=== PATIENT | female | born 1985 | race Caucasian/White ===

== ENCOUNTER 2019-12-07 21:42 | Observation (INO) ==
[2019-12-07 14:30] LABS: Basophils % 0.3 %; Red Cell Distribution Width 13.2 % (11.5-14.5)
[2019-12-07 14:32] LABS: Eosinophils % 0.3 %; Hematocrit 30.5 % (35.3-44.9); Hemoglobin 9.9 g/dL (11.5-15.4); Immature Granulocytes % 0.4 % (0-4); Immature Platelets 18.1 % (1.1-6.1); Lymphocytes # 1.2 K/mcL (0.6-4.6); Lymphocytes % 17.6 %; Mean Corpuscular HGB Conc 32.5 g/dL (31.6-35.5); Mean Corpuscular Hemoglobin 26.6 pg (28.0-33.3); Mean Platelet Volume 13.2 fL (9.4-12.4); Monocytes # 0.6 K/mcL (0.0-1.3); Monocytes % 8.4 %; Platelet Count 117 K/mcL (140-400); Red Blood Count 3.72 M/mcL (3.82-4.97); White Blood Count 6.9 K/mcL (4.3-11.1)
[2019-12-07 14:33] LABS: Protein/Creatinine Ratio,Urine 0.2 mg/mg (0.00-0.20)
[2019-12-07 14:44] LABS: Alanine Aminotransferase 9 Units/L (7-52); Aspartate Amino Transferase 19 Units/L (13-39); BUN/Creatinine Ratio 10 (6-26); Blood Urea Nitrogen 6 mg/dL (6-20); Lactate Dehydrogenase 110 Units/L (140-271); Uric Acid 6.4 mg/dL (2.3-7.6); eGFR For African Americans > 60 (> 60); eGFR For Non-African Americans > 60 (> 60)
[2019-12-07] MEDS: Betamethasone Acet/SodPhos 30 MG/5 ML VIAL IM SCH (16:23)
[2019-12-08 06:32] LABS: Hematocrit 30.9 % (35.3-44.9); Hemoglobin 9.7 g/dL (11.5-15.4); Mean Corpuscular HGB Conc 31.4 g/dL (31.6-35.5); Mean Corpuscular Volume 86.1 fL (83.0-100.0); Mean Platelet Volume 12.7 fL (9.4-12.4); Platelet Count 126 K/mcL (140-400); Red Blood Count 3.59 M/mcL (3.82-4.97); Red Cell Distribution Width 13.3 % (11.5-14.5); White Blood Count 9.4 K/mcL (4.3-11.1)
[2019-12-08 06:53] LABS: Aspartate Amino Transferase 17 Units/L (13-39); BUN/Creatinine Ratio 11 (6-26); Blood Urea Nitrogen 7 mg/dL (6-20); eGFR For African Americans > 60 (> 60); eGFR For Non-African Americans > 60 (> 60)
[2019-12-08 14:49] LABS: Total Volume 24 Hour,Urine 1.32 Liters (0.60-1.60)
[2019-12-08] MEDS: Betamethasone Acet/SodPhos 30 MG/5 ML VIAL IM SCH (16:23)
[2019-12-08 16:43] VITALS: BP 137/90
== END 2019-12-08 17:15 | disposition home or self-care (01) ==
LOC: 1NENULAB → 1NENUOBS 21:42
PROVIDERS: ADMIT Obstetrics & Gynecology; ATTEND Obstetrics & Gynecology

== ENCOUNTER 2019-12-10 04:32 | Inpatient (IN) ==
[~2019-12-10 04:32] MED LIST: *HR* FentaNYL (PF) 100 MCG/2 ML VIAL IVP PRN; Famotidine 20 MG/2 ML VIAL IVP PRN; Lidocaine 1% 20 ML MDV INFILT PRN; Metoclopramide 10 MG/2 ML VIAL IVP PRN; Naloxone 0.4 MG/ML INJ IVP PRN; Ondansetron 4 MG/2 ML VIAL IVP PRN
[2019-12-10] MEDS ORDERED: Penicillin G Potassium 5,000,000 UNIT in 0.9 % Sodium Chloride Mini Bag 100 ML IVPB ONE (04:34)
[2019-12-10] MEDS ORDERED: Ringers Solution, Lactated 1,000 ML IVC SCH (04:45)
[2019-12-10 05:01] LABS: Hematocrit 29.9 % (35.3-44.9); Hemoglobin 9.4 g/dL (11.5-15.4); Mean Corpuscular HGB Conc 31.4 g/dL (31.6-35.5); Mean Corpuscular Volume 82.6 fL (83.0-100.0); Red Blood Count 3.62 M/mcL (3.82-4.97)
[2019-12-10 05:02] LABS: Basophils % 0.4 %; Eosinophils % 0.1 %; Immature Granulocytes % 4.5 % (0-4); Immature Platelets 17.9 % (1.1-6.1); Lymphocytes # 1.9 K/mcL (0.6-4.6); Lymphocytes % 17.1 %; Mean Platelet Volume 12.9 fL (9.4-12.4); Monocytes # 0.9 K/mcL (0.0-1.3); Monocytes % 8.4 %; Neutrophils # 7.8 K/mcL (1.6-8.9); Nucleated Red Blood Cells 1.2 /100 WBC (0); Platelet Count 154 K/mcL (140-400); Red Cell Distribution Width 13.5 % (11.5-14.5); Segmented Neutrophils % 69.5 %; White Blood Count 11.2 K/mcL (4.3-11.1)
[2019-12-10 05:12] LABS: Amphetamine Screen,Urine Negative ng/mL (Cutoff=1000); Barbiturate Screen,Urine Negative ng/mL (Cutoff=200); Benzodiazepines Screen,Urine Negative ng/mL (Cutoff=200); Cannabinoid Screen,Urine Negative ng/mL (Cutoff = 50); Cocaine Screen,Urine Negative ng/mL (Cutoff= 300); Opiate Screen,Urine Negative ng/mL (Cutoff=300); Phencyclidine Screen,Urine Negative ng/mL (Cutoff=25)
[2019-12-10 05:22] LABS: Alanine Aminotransferase 10 Units/L (7-52); Aspartate Amino Transferase 22 Units/L (13-39); BUN/Creatinine Ratio 20 (6-26); Blood Urea Nitrogen 14 mg/dL (6-20); Lactate Dehydrogenase 142 Units/L (140-271); Uric Acid 7.3 mg/dL (2.3-7.6); eGFR For African Americans > 60 (> 60); eGFR For Non-African Americans > 60 (> 60)
[2019-12-10] MEDS ORDERED: *HR* Labetalol 20 MG/4 ML SYRINGE IVP PRN (05:24)
[2019-12-10] MEDS ORDERED: Magnesium Sulf 20 gm/SW 500mL 20 GM/500 ML IV.SOLN IVC SCH (05:30)
[2019-12-10] MEDS ORDERED: Epidural Premix (fent/bupiv) 110 ML EP ONE (06:03)
[2019-12-10] MEDS ORDERED: Ropivacaine/PF 0.2% 20 ML VIAL ONE (06:06)
[2019-12-10] MEDS ORDERED: Naloxone 0.4 MG/ML INJ IVP PRN (06:51)
[2019-12-10] MEDS ORDERED: EPHEDrine 50 MG/ML VIAL IVP PRN (06:51)
[2019-12-10] MEDS ORDERED: Ropivacaine/PF 0.2% 20 ML VIAL EP ONE (06:51)
[2019-12-10] MEDS ORDERED: Ondansetron 4 MG/2 ML VIAL IVP PRN (06:51)
[2019-12-10] MEDS ORDERED: Epidural Premix (fent/bupiv) 110 ML EP SCH (07:00)
[2019-12-10] MEDS ORDERED: *HR* Labetalol 20 MG/4 ML SYRINGE IVP ONE ×2 (07:22→07:25)
[2019-12-10 07:53] LABS: Creatinine,Urine 63 mg/dL; Protein/Creatinine Ratio,Urine 0.51 mg/mg (0.00-0.20)
[2019-12-10] MEDS ORDERED: Penicillin G Potassium 2,500,000 UNIT/105 ML MLS IVPB SCH (08:00)
[2019-12-10] MEDS ORDERED: Oxytocin 20 units/ LR 1000 mL 40 UNIT/2,000 ML BAG IVC ONE (08:36)
[2019-12-10] MEDS ORDERED: Oxytocin 20 units/ LR 1000 mL 20 UNIT/1,000 ML BAG IVC ONE (11:19)
[2019-12-10] MEDS ORDERED: Lanolin 7 G OINT...G. TP PRN (11:19)
[2019-12-10] MEDS ORDERED: Oxytocin 20 units/ LR 1000 mL 20 UNIT/1,000 ML BAG IVC SCH (11:19)
[2019-12-10] MEDS ORDERED: Rho Immune Globulin 1,500 UNIT SYRINGE IM PRN (11:19)
[2019-12-10] MEDS ORDERED: Measles/Mumps/Rubella Vacc 0.5 ML VIAL SQ PRN (11:19)
[2019-12-10] MEDS ORDERED: NIFEdipine XL (24 HR) 30 MG TAB.ER.24 PO ONE (12:50)
[2019-12-10] MEDS ORDERED: miSOPROStoL 100 MCG TABLET PO ONE (14:02)
[2019-12-11] MEDS: Acetaminophen 325 MG TABLET PO PRN ×2 (01:06→10:54)
[2019-12-11 04:53] LABS: Mean Corpuscular HGB Conc 31.4 g/dL (31.6-35.5); Mean Corpuscular Hemoglobin 26.6 pg (28.0-33.3); Mean Corpuscular Volume 84.9 fL (83.0-100.0); Mean Platelet Volume 12.8 fL (9.4-12.4); Platelet Count 124 K/mcL (140-400); Red Blood Count 2.59 M/mcL (3.82-4.97); Red Cell Distribution Width 13.4 % (11.5-14.5); Segmented Neutrophils % 72.1 %; White Blood Count 9.9 K/mcL (4.3-11.1)
[2019-12-11 04:54] LABS: Basophils % 0.2 %; Eosinophils % 0.2 %; Immature Granulocytes % 1.2 % (0-4); Lymphocytes # 1.8 K/mcL (0.6-4.6); Lymphocytes % 18.5 %; Monocytes # 0.8 K/mcL (0.0-1.3); Monocytes % 7.8 %; Neutrophils # 7.1 K/mcL (1.6-8.9); Nucleated Red Blood Cells 0.4 /100 WBC (0)
[2019-12-11 04:55] LABS: Hemoglobin 6.9 g/dL (11.5-15.4)
[2019-12-11] MEDS: Ibuprofen 600 MG TABLET PO PRN ×2 (08:04→20:09)
[2019-12-11] MEDS ORDERED: Prenatal Vit/FA 1 EACH TABLET PO SCH (09:00)
[2019-12-11] MEDS ORDERED: 0.9 % Sodium Chloride 500 ML IVC SCH (10:45)
[2019-12-11 11:13] LABS: Alanine Aminotransferase 8 Units/L (7-52); Aspartate Amino Transferase 18 Units/L (13-39); BUN/Creatinine Ratio 15 (6-26); Blood Urea Nitrogen 10 mg/dL (6-20); Lactate Dehydrogenase 119 Units/L (140-271); Uric Acid 7.2 mg/dL (2.3-7.6); eGFR For African Americans > 60 (> 60); eGFR For Non-African Americans > 60 (> 60)
[2019-12-12 08:29] LABS: Alanine Aminotransferase 8 Units/L (7-52); Aspartate Amino Transferase 15 Units/L (13-39); BUN/Creatinine Ratio 22 (6-26); Blood Urea Nitrogen 14 mg/dL (6-20); Lactate Dehydrogenase 128 Units/L (140-271); Uric Acid 6.4 mg/dL (2.3-7.6); eGFR For African Americans > 60 (> 60); eGFR For Non-African Americans > 60 (> 60)
[2019-12-12] MEDS: Ibuprofen 600 MG TABLET PO PRN (09:24)
[2019-12-12 10:36] LABS: Basophils % 0.5 %; Eosinophils # 0.1 K/mcL (0.0-0.6); Eosinophils % 0.6 %; Hematocrit 29.4 % (35.3-44.9); Immature Granulocytes % 2.4 % (0-4); Lymphocytes # 2.3 K/mcL (0.6-4.6); Lymphocytes % 26.2 %; Mean Corpuscular Hemoglobin 27.6 pg (28.0-33.3); Mean Corpuscular Volume 86.5 fL (83.0-100.0); Mean Platelet Volume 11.9 fL (9.4-12.4); Monocytes # 0.5 K/mcL (0.0-1.3); Monocytes % 5.5 %; Neutrophils # 5.7 K/mcL (1.6-8.9); Nucleated Red Blood Cells 0.6 /100 WBC (0); Platelet Count 160 K/mcL (140-400); Red Cell Distribution Width 14.1 % (11.5-14.5); Segmented Neutrophils % 64.8 %; White Blood Count 8.7 K/mcL (4.3-11.1)
[2019-12-12 10:39] LABS: Hemoglobin 9.4 g/dL (11.5-15.4)
[2019-12-12 14:17] VITALS: BP 142/82
== END 2019-12-12 14:21 | disposition home or self-care (01) | DRG 807 ==
LOC: 1NENULAB → 1NENUOBS 10:46
PROVIDERS: ADMIT Obstetrics & Gynecology; ATTEND Obstetrics & Gynecology

== ENCOUNTER 2020-03-20 17:47 | Observation (INO) ==
[2020-03-20 18:39] LABS: Basophils % 0.7 %; Eosinophils # 0.1 K/mcL (0.0-0.6); Eosinophils % 0.8 %; Immature Granulocytes % 0.2 % (0-4); Lymphocytes # 1.5 K/mcL (0.6-4.6); Lymphocytes % 25.5 %; Mean Corpuscular HGB Conc 32.3 g/dL (31.6-35.5); Mean Corpuscular Hemoglobin 26.6 pg (28.0-33.3); Mean Corpuscular Volume 82.4 fL (83.0-100.0); Mean Platelet Volume 11.1 fL (9.4-12.4); Monocytes # 0.5 K/mcL (0.0-1.3); Neutrophils # 3.8 K/mcL (1.6-8.9); Platelet Count 180 K/mcL (140-400); Red Blood Count 3.76 M/mcL (3.82-4.97); Red Cell Distribution Width 13.6 % (11.5-14.5); Segmented Neutrophils % 64.8 %; White Blood Count 5.9 K/mcL (4.3-11.1)
[2020-03-20] MEDS ORDERED: Ferric Subsulfate 8 GM TOPICAL TP STA (20:40)
[2020-03-20] MEDS ORDERED: 0.9 % Sodium Chloride 2,000 ML ONE (21:03)
[2020-03-20] MEDS: 0.9 % Sodium Chloride 1,000 ML IVC ONE (21:04)
[2020-03-20] MEDS ORDERED: 0.9 % Sodium Chloride 500 ML ONE ×2 (21:15→21:55)
[2020-03-20 21:31] LABS: Basophils % 0.4 %; Eosinophils % 0.3 %; Hematocrit 29.6 % (35.3-44.9); Hemoglobin 9.5 g/dL (11.5-15.4); Immature Granulocytes % 0.3 % (0-4); Lymphocytes % 13.4 %; Mean Corpuscular HGB Conc 32.1 g/dL (31.6-35.5); Mean Corpuscular Hemoglobin 27.1 pg (28.0-33.3); Mean Corpuscular Volume 84.3 fL (83.0-100.0); Mean Platelet Volume 11.3 fL (9.4-12.4); Monocytes # 0.4 K/mcL (0.0-1.3); Neutrophils # 6.2 K/mcL (1.6-8.9); Platelet Count 194 K/mcL (140-400); Red Blood Count 3.51 M/mcL (3.82-4.97); Red Cell Distribution Width 13.7 % (11.5-14.5); Segmented Neutrophils % 80.6 %; White Blood Count 7.7 K/mcL (4.3-11.1)
[2020-03-20] MEDS ORDERED: Lidocaine -MPF 2% 2 ML VIAL ONE (21:33)
[2020-03-20] MEDS ORDERED: *HR* Propofol 200 MG/20 ML VIAL IVP ONE (21:33)
[2020-03-20] MEDS ORDERED: *HR* Midazolam HCl 2 MG/2 ML VIAL ONE (21:33)
[2020-03-20] MEDS ORDERED: Ondansetron 4 MG/2 ML VIAL ONE (21:33)
[2020-03-20] MEDS ORDERED: *HR* FentaNYL (PF) 100 MCG/2 ML VIAL ONE (21:33)
[2020-03-20] MEDS ORDERED: *HR* Succinylcholine 200 MG/10 ML VIAL IVP ONE (21:33)
[2020-03-20] MEDS ORDERED: *HR* FentaNYL (PF) 100 MCG/2 ML VIAL IVP PRN (22:06)
[2020-03-20] MEDS ORDERED: Naloxone 0.4 MG/ML INJ IVP PRN (22:06)
[2020-03-20] MEDS ORDERED: Albuterol 2.5 MG/3 ML NEBULIZER IH PRN (22:06)
[2020-03-20] MEDS ORDERED: Nitroglycerin 0.4 MG TAB.SUBL SL PRN (22:06)
[2020-03-20] MEDS ORDERED: Ondansetron 4 MG/2 ML VIAL IVP ONE (22:06)
[2020-03-20] MEDS ORDERED: Lanolin 7 G OINT...G. TP PRN (23:31)
[2020-03-20] MEDS ORDERED: Ringers Solution, Lactated 1,000 ML IVC SCH (23:31)
[2020-03-20] MEDS ORDERED: *HR* HYDROcodone/Acet 5/325 mg TABLET PO PRN (23:31)
[2020-03-20] MEDS ORDERED: *HR* HYDROcodone/Acet 10/325 mg TABLET PO PRN (23:31)
[2020-03-21] MEDS: 0.9 % Sodium Chloride 1,000 ML IVC ONE (00:20)
[2020-03-21] MEDS ORDERED: Ondansetron 4 MG/2 ML VIAL IVP ONE (00:27)
[2020-03-21 06:35] LABS: Basophils % 0.1 %; Hemoglobin 9.5 g/dL (11.5-15.4); Immature Granulocytes % 0.2 % (0-4); Lymphocytes # 0.6 K/mcL (0.6-4.6); Lymphocytes % 6.4 %; Mean Corpuscular HGB Conc 32.8 g/dL (31.6-35.5); Mean Corpuscular Hemoglobin 26.9 pg (28.0-33.3); Mean Corpuscular Volume 82.2 fL (83.0-100.0); Monocytes # 0.1 K/mcL (0.0-1.3); Monocytes % 1.6 %; Neutrophils # 7.9 K/mcL (1.6-8.9); Platelet Count 175 K/mcL (140-400); Red Blood Count 3.53 M/mcL (3.82-4.97); Red Cell Distribution Width 13.5 % (11.5-14.5); Segmented Neutrophils % 91.7 %; White Blood Count 8.6 K/mcL (4.3-11.1)
[2020-03-21 10:21] VITALS: BP 133/77
== END 2020-03-21 12:05 | disposition home or self-care (01) ==
LOC: EMEROOARM 17:47 → 1NENUOBS 17:47
PROVIDERS: ADMIT Obstetrics & Gynecology; ATTEND Obstetrics & Gynecology